=== PATIENT | male | born 1995 | race Caucasian/White ===

== ENCOUNTER 2020-02-14 15:50 | Emergency (ER) | payer SELFPAY ==
[~2020-02-14] VITALS: Ht 172.7 cm; Wt 84.1 kg
[2020-02-14 15:56] VITALS: TEMP 98.5
[2020-02-14 16:29] LABS: BASO # 0.1 (0.0-0.2); BASO % 1.7 % (0.0-2.0); EOS # 0.5 (0.0-0.7); EOS % 5.9 % (0-4.0); HEMATOCRIT 43.7 % (42.0-52.0); HEMOGLOBIN 15.3 g/dl (13.5-18.0); LYMPH # 1.6 (1.2-3.4); MEAN CELL VOLUME 91 fl (80.0-100.0); MEAN CORPUSCULAR HEMOGLOBIN 32 pg (27.0-31.0); MEAN CORPUSCULAR HGB CONC 35 g/dl (33.0-37.0); MEAN PLATELET VOLUME 8.4 fl (7.4-10.4); MONO # 0.6 (0.1-0.6); MONO % 8.1 % (1.7-9.3); PLATELET COUNT 317 K/mm3 (130-400); RED BLOOD COUNT 4.79 M/mm3 (4.20-5.60)
[2020-02-14 16:49] LABS: ALANINE AMINOTRANSFERASE 15 U/L (4-49); ALBUMIN 4.6 gm/dL (3.5-5.0); ALKALINE PHOSPHATASE 64 U/L (50-136); ANION GAP 9 mmol/L (7-16); AST,SGOT 18 U/L (15-37); BILIRUBIN,TOTAL 0.4 mg/dL (0.0-1.0); BLOOD UREA NITROGEN 15 mg/dL (9-20); CALCIUM 9.3 mg/dL (8.4-10.2); CARBON DIOXIDE 26 mmol/L (22-30); CHLORIDE 105 mmol/L (98-107); CREATININE, serum 0.84 (0.66-1.25); GLUCOSE 95 mg/dL (74-106); LIPASE 129 U/L (23-300); POTASSIUM 4.4 mmol/L (3.4-5.0); SODIUM 140 mmol/L (137-145); TOTAL PROTEIN 7.2 gm/dL (6.4-8.2)
[2020-02-14 17:07] LABS: C-REACTIVE PROTEIN < 0.5 mg/dL (0.0-0.9)
[2020-02-14 17:09] LABS: COLLECTION METHOD CLEAN CATCH
[2020-02-14 17:16] LABS: MUCOUS Present /lpf; PH 7 (5-8); SQUAMOUS EPITHELIAL None Seen /hpf; URINE APPEARANCE Clear; URINE BACTERIA None Seen /hpf; URINE BILIRUBIN Negative (NEGATIVE); URINE BLOOD Negative (NEGATIVE); URINE COLOR Yellow; URINE GLUCOSE Negative (NEGATIVE); URINE KETONE Negative (NEGATIVE); URINE LEUKOCYTE ESTERASE Negative (NEGATIVE); URINE NITRATE Negative (NEGATIVE); URINE PROTEIN(semi-quant) Negative (NEGATIVE); URINE RBC 0-2 /hpf; URINE UROBILINOGEN Negative (NEGATIVE)
[2020-02-14 17:52] VITALS: BP 144/70; PULSE 78
[2020-02-15] MEDS ORDERED: NAPROSYN 2250 MG/TAB PO (20:04)
[2020-02-15] MEDS ORDERED: BENTYL 20MG20 MG/TAB PO (20:04)
== END 2020-02-14 17:52 | disposition home or self-care (01) ==
LOC: COL.ER 15:50
PROVIDERS: Nurse Practitioner Primary Care
DX: R10.32 Left lower quadrant pain (principal); R10.31 Right lower quadrant pain; F17.200 Nicotine dependence, unspecified, uncomplicated
CPT/HCPCS: J1885; J7030; Q9967